=== PATIENT | female | born 1995 | race Caucasian/White ===

== ENCOUNTER 2017-05-28 15:43 | Emergency (ER) | payer BC, OTHER ==
[~2017-05-28 15:43] MED LIST: IBUP-238 PO; TRAM50 PO; Z.0.NO CURRENT MEDS
[2017-05-28 15:50] VITALS: BP 130/69; PULSE 111; RESP 20; TEMP 98.7; O2SAT 94
--- NOTE | 2017-05-28 16:39 | RADRPT ---
EXAM DATE/TIME: 05/28/2017 16:22 [facility] COMPARISON: No previous studies available for comparison. INDICATIONS : Patient fell, hit chin on table, has laceration. RADIATION DOSE: 45.79 CTDIvol (mGy) MEDICAL HISTORY : None SURGICAL HISTORY : None. ENCOUNTER: Initial ACUITY: 1 day PAIN SCALE: 9/10 LOCATION: cranial TECHNIQUE: Multiple contiguous axial images were obtained of the head. Using automated exposure control and adj ustment of the mA and/or kV according to patient size, radiation dose was kept as low as reasonably a chievable to obtain optimal diagnostic quality images. DICOM format image data is available electro nically for review and comparison. FINDINGS: CEREBRUM: The ventricles are normal for age. No evidence of midline shift, mass lesion, hemorrhage or acute in farction. No extra-axial fluid collections are seen. POSTERIOR FOSSA: The cerebellum and brainstem are intact. The 4th ventricle is midline. The cerebellopontine angle i s unremarkable. EXTRACRANIAL: The visualized portion of the orbits is intact. SKULL: The calvaria is intact. No evidence of skull fracture. CONCLUSION: Negative for acute process. Brett Meeks MD FACR on May 28, 2017 at 16:36 Board Certified Radiologist. This report was verified electronically.
--- NOTE | 2017-05-28 16:40 | PD ---
HPI Chief Complaint: Laceration/Skin Injury Time Seen by Provider: 16:27 Travel History International Travel<30 days: No Contact w/Intl Traveler<30days: No Traveled to known affect area: No History of Present Illness HPI 21-year-old female presents to the ED for evaluation of chin laceration. Sustained after the patient fell down a few steps. She states that she crashed into a glass coffee table. She states that she was not knocked out in the incident, however after seeing the blood the patient fainted. On presentation she complains of 9/10 chin pain. She denies headache, dizziness, vision changes , malocclusion, difficulty swallowing, shortness breath, nausea, vomiting, numbness, tingling, weakness, limitations to range of motion of the extremities. Mom is at bedside, states that she is up-to-date on immunizations , sees a wedding transportation driver regularly. No treatment attempted before arrival. PFSH Past Medical History Diminished Hearing: No Immunizations Current: Yes ([id number]) ?: Not LMP: 05/08/17 Past Surgical History Tonsillectomy: Yes Social History Alcohol Use: No Tobacco Use: No Substance Use: No Allergies-Medications (Allergen,Severity, Reaction): Coded Allergies: No Known Allergies (Verified Allergy, Unknown, 05/02/09) Reported Meds & Prescriptions Reported Meds & Active Scripts Active Keflex (Cephalexin) 500 Mg Cap 500 Mg PO Q6H 7 Days Tramadol (Tramadol HCl) 50 Mg Tab 50 Mg PO Q6H PRN Robaxin (Methocarbamol) 500 Mg Tab 500 Mg PO TID Ibuprofen 600 Mg Tab 600 Mg PO Q6H PRN Ultram (Tramadol HCl) 50 Mg Tab 1 Tab PO Q6 Motrin (Ibuprofen) 800 Mg Tab 1 Tab PO BID Reported No Current Meds (Miscellaneous Medication) [facility] Review of Systems Except as stated in HPI: all other systems reviewed are Neg Physical Exam Narrative GENERAL: Well-nourished, well-developed white female in no acute distress. SKIN: Warm and dry. There is a 7 cm U-shaped full-thickness laceration of the chin. There are 2 x ~2mm lacerations that penetrate to to the mouth. HEAD: Normocephalic. Atraumatic. No raccoon eyes or gracia sign. No tenderness to palpation of the skull. No bony step-offs. No malocclusion of the teeth. No movement of the alveolar ridge. EYES: No scleral icterus. No injection or drainage. PERRLA. EOMI. ENT: Pearly romero tympanic membrane is bilaterally. Nasal mucosa is moist. Oropharynx without erythema, edema or exudate. NECK: Supple, trachea midline. No JVD or lymphadenopathy. No midline tenderness to palpation. Patient retains full, active, painless range of motion of the neck. CARDIOVASCULAR: Regular rate and rhythm without murmurs, gallops, or rubs. 2+ DP and radial pulses bilaterally. RESPIRATORY: Breath sounds clear and equal bilaterally. No accessory muscle use. GASTROINTESTINAL: Abdomen soft, non-tender, nondistended. + Bowel sounds MUSCULOSKELETAL: No cyanosis, or edema. No tenderness to palpation or limitations to range of motion of the joints of the upper and lower extremities bilaterally. NEUROLOGICAL: Awake and alert. Cranial nerves II through XII intact. Motor and sensory grossly within normal limits. 5/5 muscle strength in all muscle groups. Normal speech. BACK: Nontender without obvious deformity. No CVA tenderness. No midline tenderness. Data Data Last Documented VS Vital Signs Date Time Temp Pulse Resp B/P (MAP) Pulse Ox O2 Delivery O2 Flow Rate FiO2 05/28/17 15:50 98.7 111 20 130/69 (89) [address] Brain W/O Iv Contrast(Rout) (05/28/17 ) Ct Facial Bones W/O Iv Cont (05/28/17 ) Lidocaine Pf 1% Inj (Xylocaine-Mpf 1% In (05/28/17 17:15) Acetamin-Hydrocod 325-5 Mg ([place] 5-325 (05/28/17 17:15) Ondansetron Odt (Zofran Odt) (05/28/17 17:15) Bupivacaine-Epi Pf 0.25% Inj (Marcaine-E (05/28/17 18:00) Bupivacaine-Epi Pf 0.25% Inj (Sensorcain (05/28/17 18:15) Tetanus/Diphtheria Tox Adult (Tetanus/Di (05/28/17 20:00) Cephalexin (Keflex) (05/28/17 20:00) Ed Discharge Order (05/28/17 20:38) MDM Medical Decision Making Medical Screen Exam Complete: Yes Emergency Medical Condition: Yes Differential Diagnosis General laceration versus musculoskeletal pain versus patient fracture versus ICH versus other Narrative Course 21-year-old female presents to the ED for evaluation of chin laceration. Sustained after the patient fell down a few steps. She states that she crashed into a glass coffee table. She states that she was not knocked out in the incident, however after seeing the blood the patient fainted. On presentation she complains of 9/10 chin pain. She denies headache, dizziness, vision changes , malocclusion, difficulty swallowing, shortness breath, nausea, vomiting, numbness, tingling, weakness, limitations to range of motion of the extremities. Vitals reviewed. On exam the patient has a full-thickness approximate 7 cm U-shaped laceration of the chin. There are 2 small ulcerations of the oral cavity. Exam otherwise unremarkable. Tetanus immunization was updated. Patient was administered 5 mg [place], 4 mg ODT Zofran. CTs of the head and facial bones reveal no acute bony injury. Dr. Rojo came to bedside and performed the laceration repair. Please see his note for those details. She is prescribed a brief course of anti-inflammatories , tramadol as needed for pain greater than 6, few doses of Robaxin. She is is prescribed Keflex for wound prophylaxis. First dose administered in the ED. patient was provided with detailed wound care instructions. She is instructed to take the medications as prescribed, follow with Dr. jason castellon in 5-7 days. The patient and her family indicated understanding of the instructions and are agreeable to the care plan. The patient is stable and discharged home. Diagnosis Primary Impression: Chin laceration Qualified Codes: S01.81XA - Laceration without foreign body of other part of head, initial encounter Additional Impression: Fall (on) (from) other stairs and steps, initial encounter Referrals: Wily Monroy MD Additional Instructions: Rest, hydrate. Keep your wound clean, dry and covered. Begin antibiotics today and take them until every pill is gone. Take ibuprofen as needed for musculoskeletal pain rated 1 through 5 on the pain scale. Take tramadol as prescribed, as needed for pain greater than 5. Take Robaxin as prescribed, as needed for muscle spasm. Do not drive while taking tramadol or Robaxin as they can make you drowsy. Use caution when mixing tramadol and Robaxin. Follow-up with Dr. Rojo in the office in 5-7 days. Return to the ED for any urgent or emergent medical condition. Med/Other Pt SpecificInfo: Prescription(s) given Scripts Cephalexin (Keflex) 500 Mg Cap 500 MG PO Q6H for Infection for 7 Days, #28 CAP 0 Refills Prov: Lynn Higgins MD 05/28/17 Tramadol (Tramadol) 50 Mg Tab 50 MG PO Q6H Y for PAIN GREATER THAN 6, #12 TAB 0 Refills Prov: Lynn Higgins MD 05/28/17 Methocarbamol (Robaxin) 500 Mg Tab 500 MG PO TID for Muscle Spasm, #12 TAB 0 Refills Prov: Marcin Dixon MD 05/28/17 Ibuprofen (Ibuprofen) 600 Mg Tab 600 MG PO Q6H Y for PAIN SCALE 1 TO 5, #40 TAB 0 Refills Prov: Marcin Dixon MD 05/28/17 Disposition: 01 DISCHARGE HOME Condition: Stable Jaclyn Hopepr May 28, 2017 16:40
--- NOTE | 2017-05-28 16:42 | RADRPT ---
EXAM DATE/TIME: 05/28/2017 16:22 [facility] COMPARISON: No previous studies available for comparison. INDICATIONS : Patient fell, hit chin on table, has laceration. RADIATION DOSE: 16.25 CTDIvol (mGy) MEDICAL HISTORY : None SURGICAL HISTORY : None. ENCOUNTER: Initial ACUITY: 1 day PAIN SCORE: 9/10 LOCATION: facial TECHNIQUE: Volumetric scanning of the facial bones was performed. Using automated exposure control and adjustme nt of the mA and/or kV according to patient size, radiation dose was kept as low as reasonably achiev able to obtain optimal diagnostic quality images. DICOM format image data is available electronicKotak Urja y for review and comparison. FINDINGS: ORBITS: The orbital and infraorbital osseous structures are intact. The retroconal structures have a normal configuration. No radiopaque foreign bodies are seen. NASAL BONE: The nasal bone and maxillary spine are intact ZYGOMATIC ARCHES: Symmetric without evidence of fracture. SINUSES: The maxillary, ethmoid and frontal sinuses are intact. No air-fluid levels seen. NASAL CAVITY: The nasal septum is intact and midline. The lacrimal ducts are intact. SOFT TISSUES: A laceration is seen overlying the chin. INTRACRANIAL: No intracranial air seen. CRIBIFORM PLATE: Grossly intact. CONCLUSION: No evidence of facial bone fracture. Tico Mann MD on May 28, 2017 at 16:38 Board Certified Radiologist. This report was verified electronically.
[2017-05-28] MEDS ORDERED: ACETAMINOPHEN/HYDROcodone 325 MG/5 MG TAB PO ONE (17:15)
[2017-05-28] MEDS ORDERED: LIDOCAINE HCL 1% PF 30 ML VIAL INFIL ONE (17:15)
[2017-05-28] MEDS ORDERED: ONDANSETRON ODT 4 MG TAB PO ONE (17:15)
[2017-05-28] MEDS ORDERED: BUPIVACAINE/EPINEPHRINE 0.25% PF 30 ML VIAL NERV BLOCK ONE (18:00)
[2017-05-28] MEDS ORDERED: BUPIVACAINE/EPINEPHRINE 0.25% PF 10 ML VIAL NERV BLOCK ONE (18:15)
[2017-05-28] MEDS ORDERED: ROBA500T PO (19:15)
[2017-05-28] MEDS ORDERED: NORC5TAB PO (19:15)
[2017-05-28] MEDS ORDERED: IBUP-232 PO (19:15)
[2017-05-28] MEDS ORDERED: TRAM50TA PO (19:17)
[2017-05-28] MEDS ORDERED: TETANUS/DIPHTHERIA TOXOID ADULT 0.5 ML VIAL IM ONE (20:00)
[2017-05-28] MEDS ORDERED: CEPH-460 PO (20:00)
[2017-05-28] MEDS ORDERED: CEPHALEXIN MONOHYDRATE 500 MG CAP PO ONE (20:00)
--- NOTE | 2017-05-28 22:07 | PD.CONS ---
History of Present Illness Service Plastic Surgery Consult Requested By ED Reason for Consult Complex full thickness chin/lower lip laceration with degloving Primary Care Physician Marya Costello MD Diagnoses: (1) Complicated laceration of lip History of Present Illness 21-year-old female presents to the ED for evaluation of chin laceration. Sustained after the patient fell down a few steps. She states that she crashed into a glass coffee table. She states that she was not knocked out in the incident, however after seeing the blood the patient fainted. On presentation she complained of 9/10 chin pain. She denies headache, dizziness, vision changes, malocclusion, difficulty swallowing, shortness breath, nausea, vomiting , numbness, tingling, weakness, limitations to range of motion of the extremities. Mom is at bedside, states that she is up-to-date on immunizations , sees a entry level chemist regularly. No treatment attempted before arrival. PFSH Past Medical History Diminished Hearing: No Immunizations Current: Yes ([id number]) ?: Not LMP: 05/08/17 Past Surgical History Tonsillectomy: Yes Social History Alcohol Use: No Tobacco Use: No Substance Use: No Allergies-Medications (Allergen,Severity, Reaction): Coded Allergies: No Known Allergies (Verified Allergy, Unknown, 05/02/09) Reported Meds & Prescriptions Reported Meds & Active Scripts Active Keflex (Cephalexin) 500 Mg Cap 500 Mg PO Q6H 7 Days Tramadol (Tramadol HCl) 50 Mg Tab 50 Mg PO Q6H PRN Robaxin (Methocarbamol) 500 Mg Tab 500 Mg PO TID Ibuprofen 600 Mg Tab 600 Mg PO Q6H PRN Ultram (Tramadol HCl) 50 Mg Tab 1 Tab PO Q6 Motrin (Ibuprofen) 800 Mg Tab 1 Tab PO BID Reported No Current Meds (Miscellaneous Medication) Misc Review of Systems Except as stated in HPI: all other systems reviewed are Neg Review of Systems Except as noted in HPI, ROS negative to presenting complaint Past Family Social History Allergies: Coded Allergies: No Known Allergies (Verified Allergy, Unknown, 05/02/09) Family History Family history negative to presenting complaint Social History denies drug alcohol tobacco Physical Exam Vital Signs Vital Signs Date Time Temp Pulse Resp B/P (MAP) Pulse Ox O2 Delivery O2 Flow Rate FiO2 05/28/17 15:50 98.7 111 20 130/69 (89) 94 Physical Exam Judgment appears intact Alert and oriented 3 Moist mucous membranes PERRLA Respirations nonlabored Extremities warm well perfused Gait within normal limits Patient with 7 cm curvilinear complex laceration down to bone with degloving Lesion is full-thickness and several 2-3 mm spots, though mucosa otherwise intact Good bleeding from flap of lacerated tissue Laceration is "U shaped" over her anterior lower lip, pedicled superiorly Sensation is intact to adjacent tissue, though sensation diminished to lacerated flap of tissue Do not appreciate loose teeth Assessment and Plan Problem List: (1) Complicated laceration of lip ICD Codes: S01.511A - Laceration without foreign body of lip, initial encounter Assessment and Plan 21F w/ complex full-thickness laceration of anterior lower lip with degloving Risks benefits and alternative treatments discussed with patient and patient's parents All questions answered Patient and patient's parents expressed understanding Patient elected to assume the risks of complex wound closure Patient understands specifically the risks of scarring, dysfunction, and notching of the repaired tissue Informed consent obtained Bilateral mental nerves blocked in conjunction with surrounding tissue with quarter percent Marcaine Area thoroughly irrigated with Betadine Mucosa, orbicularis park, mentalis, and deep dermis closed with interrupted and running 5-0 and 4-0 Vicryl, followed lastly by a running 6-0 Prolene Well-tolerated Surgical site cleaned and dressed with copious bacitracin, Xeroform gauze, dry gauze, and Tegaderm Keflex and Peridex Rx given Return to clinic this Friday Wily Monroy MD May 28, 2017 22:07
== END 2017-05-28 20:59 | disposition home or self-care (01) ==
LOC: NEPK 15:43
DX: S01.81XA Laceration without foreign body of other part of head, initial encounter (principal); S01.511A Laceration without foreign body of lip, initial encounter; W10.9XXA Fall (on) (from) unspecified stairs and steps, initial encounter; Z23 Encounter for immunization
CPT/HCPCS: 13152; 70450; 70486; 90471; 90714